=== PATIENT | female | born 1930 | race Two or more races ===

== ENCOUNTER 2017-07-24 09:22 | Outpatient (CLI) | payer OTHER | END 2017-07-24 09:39 | disposition home or self-care (01) | LOC: NUCLEAR 09:22 | DX: R60.0 Localized edema (principal) ==

== ENCOUNTER 2017-07-31 09:33 | Outpatient (CLI) | payer OTHER | END 2017-07-31 10:51 | disposition home or self-care (01) | LOC: NUCLEAR 09:33 | DX: R60.0 Localized edema (principal); I73.9 Peripheral vascular disease, unspecified ==